=== PATIENT | male | born 1955 | race Caucasian/White ===

== ENCOUNTER → 2017-05-14 | Outpatient (CLI) | payer BC ==
--- NOTE | 2017-05-14 14:47 | US ---
EXAMINATION TYPE: US kidneys/renal and bladder DATE OF EXAM: 05/14/2017 COMPARISON: NONE CLINICAL HISTORY: N39.0 Freq, recurrent UTI. No symptoms now EXAM MEASUREMENTS: patient stated he was told to fill bladder with water but he does not like water and would get sick so he did not want to fill Right Kidney: 11.1 x 6.1 x 6.5cm Left Kidney: 11.6 x 5.0 x 7.0cm Right Kidney: wnl Left Kidney: wnl Bladder: not distended There is no evidence for hydronephrosis at this point in time. No nephrolithiasis is seen. No hari s are identified on images saved. Suboptimal evaluation of bladder due to nondistention. IMPRESSION: Suboptimal evaluation of the bladder otherwise unremarkable study.
== END | disposition home or self-care (01) ==
LOC: RADUSWWP 14:20
PROVIDERS: ATTEND Urology
DX: N39.0 Urinary tract infection, site not specified (principal)
CPT/HCPCS: 76770